=== PATIENT | female | born 1985 | race Two or more races ===

== ENCOUNTER 2016-10-19 11:15 | Emergency (ER) | payer OTHER ==
[2016-10-19 11:21] VITALS: BMI 30.1
--- NOTE | 2016-10-19 11:31 | PDOC ---
History of Present Illness - General Chief Complaint: Pain Stated Complaint: PELVIC PAIN, 4 WKS Time Seen by Provider: 10/19/16 11:26 History Source: Patient - History of Present Illness Timing/Duration: reports: intermittent Quality: reports: cramping Abdominal Pain Onset Location: reports: suprapubic Past History - Past Medical History Allergies/Adverse Reactions: Allergies Allergy/AdvReac Type Severity Reaction Status Date / Time No Known Allergies Allergy Verified 10/19/16 11:18 Home Medications: Ambulatory Orders Levothyroxine [Synthroid -] 25 mcg PO DAILY #1 tablet 08/14/12 Asthma: No Cancer: No Cardiac Disorders: No Diabetes: No HTN: No Seizures: No Thyroid Disease: Yes - Psycho/Social/Smoking Cessation Hx Anxiety: No Suicidal Ideation: No Smoking Status: No Smoking History: Never smoked Have you smoked in the past 12 months: No Number of Cigarettes Smoked Daily: 0 Information on smoking cessation initiated: No Hx Alcohol Use: No Drug/Substance Use Hx: No Substance Use Type: None Hx Substance Use Treatment: No Review of Systems - Review of Systems Constitutional: No: Chills, Fever ABD/GI: No: Nausea, Vomiting : No: Dysuria, Flank Pain, Hematuria *Physical Exam - Vital Signs Last Vital Signs Temp Pulse Resp BP Pulse Ox 97.9 F 82 18 149/69 100 10/19/16 11:18 10/19/16 11:18 10/19/16 11:18 10/19/16 11:18 10/19/16 11:18 - Physical Exam General Appearance: Yes: Appropriately Dressed. No: Apparent Distress HEENT: positive: Normal Voice Neck: positive: Supple Respiratory/Chest: negative: Respiratory Distress Female Pelvic Exam: positive: normal adnexa, discharge (minimal amount of milky white discharge). negative: cervical os closed, CMT Gastrointestinal/Abdominal: positive: Tender (to mid and L suprapubic), Soft Musculoskeletal: negative: CVA Tenderness Extremity: positive: Normal Inspection Integumentary: positive: Dry, Warm Neurologic: positive: Fully Oriented, Alert, Normal Mood/Affect Medical Decision Making - Medical Decision Making 10/19/16 11:30 30-year-old female, (s/p ectopic-med tx, 2 spon ABs) , approximately 5 weeks by dates, no or ultrasound as of yet, here with pelvic cramping since last night, mostly on the L side. No vag bleed, dysuria, abnl discharge, nausea, vomiting, fever or chills. see exam 1st trimester w/ pain Stable in ED w/ ttp to mid and L suprapubic, NT over mcburneys, pelvis unremarkable -pain control -ua -US 10/19/16 11:50 10/19/16 11:53 10/19/16 15:19 Ges sac w/ yolk sac on US. M/l early preg. No adnexal masses or FF. Pt to f/u with CERTIFIED MEDICAL RECORDS CODER for serial beta. Reasons to return to ED d/w pt 10/19/16 15:22 10/19/16 15:22 10/19/16 15:22 *DC/Admit/Observation/Transfer Diagnosis at time of Disposition: Early stage of - Discharge Dispostion Disposition: HOME Condition at time of disposition: Good - Patient Instructions Additional Instructions: Your beta is 15,029 today. Your US is consistent with an early . Please follow up with your CERTIFIED MEDICAL RECORDS CODER in 2 days or at least on Sunday for repeat beta Return to ED for worsening of symptoms Take tylenol only for pain
--- NOTE | 2016-10-19 11:41 | PDOC ---
*Physical Exam - Vital Signs Last Vital Signs Temp Pulse Resp BP Pulse Ox 97.9 F 82 18 149/69 100 10/19/16 11:18 10/19/16 11:18 10/19/16 11:18 10/19/16 11:18 10/19/16 11:18 - Physical Exam Comments: 10/19/16 11:40 MIDLEVEL NOTE Pt seen by Midlevel Provider under my direct supervision. Pt interviewed and examined. Ancillary studies reviewed. I agree with plan as outlined by Midlevel Provider. 10/19/16 12:18 O+ from prior blood work 10/19/16 15:49 Laboratory Results - last 24 hr 10/19/16 10/19/16 11:38 11:55 Beta HCG, Quant 54223.8 Urine Color Straw Urine Appearance Clear Urine pH 6.0 Ur Specific [place] 1.005 Urine Protein Negative Urine Glucose (UA) Negative Urine Ketones Negative Urine Blood Negative Urine Nitrite Negative Urine Bilirubin Negative Urine Urobilinogen Negative Ur Leukocyte Esterase Trace H D Urine RBC 1 Urine WBC None Ur Epithelial Cells Rare Urine HCG, Qual Positive ultrasound There is an intrauterine fluid collection that is consistent with a gestational sac This corresponds to a gestational age of 5 weeks and 3 days A yolk sac is noted, however no pole is identified The ovaries are normal in size and texture with a complex right ovarian cyst, most likely hemorrhagic in nature Final impression Suspected early IUP *DC/Admit/Observation/Transfer Diagnosis at time of Disposition: Early stage of - Discharge Dispostion Disposition: HOME Condition at time of disposition: Good - Referrals Referrals: Jennifer Gregorio [Primary Care Provider] - - Patient Instructions Additional Instructions: Your beta is 15,029 today. Your US is consistent with an early . Please follow up with your ROCKET ENGINE MECHANIC in 2 days or at least on Sunday for repeat beta Return to ED for worsening of symptoms Take tylenol only for pain
[2016-10-19 11:50] LABS: URINE APPEARANCE CLEAR; URINE BILIRUBIN NEGATIVE (NEGATIVE); URINE BLOOD NEGATIVE (NEGATIVE); URINE COLOR STRAW; URINE GLUCOSE (UA) NEGATIVE (NEGATIVE); URINE KETONE NEGATIVE (NEGATIVE); URINE NITRITE NEGATIVE (NEGATIVE); URINE PROTEIN NEGATIVE (NEGATIVE); URINE UROBILINOGEN NEGATIVE E.U./dl (0.2-1.0)
[2016-10-19 11:51] LABS: URINE LEUK ESTERASE TRACE (NEGATIVE)
[2016-10-19] MEDS ORDERED: ACETAMINOPHEN 325 MG TABLET (FP) PO ONE (11:53)
[2016-10-19] MEDS ORDERED: ACETAMINOPHEN 325 MG TABLET (FP) ONE (11:53)
[2016-10-19 12:39] LABS: URINE RBC 1 /hpf (0-3)
[2016-10-19 15:30] VITALS: BP 117/61; PULSE 79; TEMP 97.8
== END 2016-10-19 15:26 | disposition home or self-care (01) ==
LOC: JER 11:15
DX: O26.891 Other specified pregnancy related conditions, first trimester (principal); R10.30 Lower abdominal pain, unspecified; Z3A.01 Less than 8 weeks gestation of pregnancy
CPT/HCPCS: 36415; 76801-TC; 81003; 81015; 84702; 84703; 99282-25

== ENCOUNTER 2016-11-27 09:08 | Emergency (ER) | payer OTHER ==
[2016-11-27 09:15] VITALS: TEMP 98.1; BMI 30.4
--- NOTE | 2016-11-27 09:22 | PDOC ---
History of Present Illness - General History Source: Patient Exam Limitations: No Limitations - History of Present Illness Initial Comments: 11/27/16 10:14 The patient is a 31 year old 11-week female with a significant past medical history of hypothyroidism, who presents to the ED with worsening cramps since today. Patient states she has been having cramps ever since she was , but it is increasingly severe today. She reports subjective fevers as well. She denies chills, nausea, vomiting, diarrhea. She denies dysuria, frequency, vaginal discharge. 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 <Amado Corrales - Last Filed: 11/27/16 10:14> <Juana Rodriguez - Last Filed: 11/27/16 12:20> - General Chief Complaint: Pain Stated Complaint: ABD PAIN, 11 WKS Time Seen by Provider: 11/27/16 09:22 Past History <Amado Corrales - Last Filed: 11/27/16 10:14> - Past Medical History Asthma: No Cancer: No Cardiac Disorders: No Diabetes: No HTN: No Seizures: No Thyroid Disease: Yes - Reproductive History (#): 5 Para: 1 Ectopic : Yes (1) Spontaneous : 2 - Psycho/Social/Smoking Cessation Hx Anxiety: No Suicidal Ideation: No Smoking Status: No Smoking History: Never smoked Have you smoked in the past 12 months: No Number of Cigarettes Smoked Daily: 0 Information on smoking cessation initiated: No Hx Alcohol Use: No Drug/Substance Use Hx: No Substance Use Type: None Hx Substance Use Treatment: No <Juana Rodriguez - Last Filed: 11/27/16 12:20> - Past Medical History Allergies/Adverse Reactions: Allergies Allergy/AdvReac Type Severity Reaction Status Date / Time No Known Allergies Allergy Verified 11/27/16 09:11 Home Medications: Ambulatory Orders Levothyroxine [Synthroid -] 25 mcg PO DAILY #1 tablet 08/14/12 Review of Systems - Review of Systems Able to Perform ROS?: Yes Comments:: 11/27/16 10:15 GENERAL/CONSTITUTIONAL: No fever or chills. No weakness. HEAD, EYES, EARS, NOSE AND THROAT: No change in vision. No ear pain or discharge. No sore throat. CARDIOVASCULAR: No chest pain or shortness of breath. RESPIRATORY: No cough, wheezing, or hemoptysis. GASTROINTESTINAL: No nausea, vomiting, diarrhea or constipation. GENITOURINARY: No dysuria, frequency, or change in urination. MUSCULOSKELETAL: No joint or muscle swelling or pain. No neck or back pain. ABDOMINAL: increasing abdominal cramping. SKIN: No rash NEUROLOGIC: No headache, vertigo, loss of consciousness, or change in strength/ sensation. ENDOCRINE: No increased thirst. No abnormal weight change. HEMATOLOGIC/LYMPHATIC: No anemia, easy bleeding, or history of blood clots. ALLERGIC/IMMUNOLOGIC: No hives or skin allergy. <Amado Corrales - Last Filed: 11/27/16 10:14> *Physical Exam - Vital Signs Last Vital Signs Temp Pulse Resp BP Pulse Ox 98.1 F 82 18 138/78 100 11/27/16 09:12 11/27/16 09:12 11/27/16 09:12 11/27/16 09:12 11/27/16 09:12 - Physical Exam Comments: 11/27/16 10:18 GENERAL: Awake, alert, and fully oriented, in no acute distress HEAD: No signs of trauma EYES: PERRLA, EOMI, sclera anicteric, conjunctiva clear ENT: Auricles normal inspection, hearing grossly normal, nares patent, oropharynx clear without exudates. Moist mucosa NECK: Normal ROM, supple, no lymphadenopathy, JVD, or masses LUNGS: Breath sounds equal, clear to auscultation bilaterally. No wheezes, and no crackles HEART: Regular rate and rhythm, normal S1 and S2, no murmurs, rubs or gallops ABDOMEN: Soft, nontender, normoactive bowel sounds. No guarding, no rebound. No masses EXTREMITIES: Normal range of motion, no edema. No clubbing or cyanosis. No cords, erythema, or tenderness NEUROLOGICAL: Cranial nerves II through XII grossly intact. Normal speech, normal gait SKIN: Warm, Dry, normal turgor, no rashes or lesions noted. PELVIC EXAMINATION: Pelvis is mildly tender. External genitalia is normal without lesions. Vaginal vault is clear without blood or discharge. Cervix is long and closed with no cervical motion tenderness. <Amado Corrales - Last Filed: 11/27/16 10:14> - Vital Signs Last Vital Signs Temp Pulse Resp BP Pulse Ox 98.1 F 82 18 138/78 100 11/27/16 09:12 11/27/16 09:12 11/27/16 09:12 11/27/16 09:12 11/27/16 09:12 <Juana Rodriguez - Last Filed: 11/27/16 12:20> ED Treatment Course - LABORATORY CBC & Chemistry Diagram: 11/27/16 10:00 11/27/16 10:00 <Amado Corrales - Last Filed: 11/27/16 10:14> - LABORATORY CBC & Chemistry Diagram: 11/27/16 10:00 11/27/16 10:00 <Juana Rodriguez - Last Filed: 11/27/16 12:20> Medical Decision Making - Medical Decision Making 11/27/16 10:55 Patient presents to the ED complaining of a "pulling sensation" in her abdomen. Patient is 11 weeks and has been having cramping throughout her . Seen in the ED 10/09, [place] [address] and a yolk sac in the uterus, suspicion for non viable . Denies vaginal bleeding. Pelvic exam is unremarkable. Early IUP vs non viable . Will check labs including serum BHCG and official ultrasound. 11/27/16 12:19 Live IUP on ultrasound. Patient is resting comfortably. UA shows no evidence of infection. Will discharge home with follow up with primary OB. <Juana Rodriguez - Last Filed: 11/27/16 12:20> *DC/Admit/Observation/Transfer - Attestations Scribe Attestion: 11/27/16 10:19 Documentation prepared by Amado Corrales, acting as medical claims analyst for Juana Rodriguez MD, . <Amado Corrales - Last Filed: 11/27/16 10:14> - Discharge Dispostion Admit: No <Juana Rodriguez - Last Filed: 11/27/16 12:20> Diagnosis at time of Disposition: Early stage of - Discharge Dispostion Disposition: HOME Condition at time of disposition: Good - Referrals Referrals: Jennifer Gregorio [Primary Care Provider] -
[2016-11-27 10:15] LABS: BASOPHIL 0.6 % (0-2.0); EOSINOPHIL 1.8 % (0-4.5); MCH 22.8 pg (25.7-33.7); MCHC 32.4 g/dl (32.0-36.0); MEAN CELL VOLUME 70.5 fl (80-96); PLATELET COUNT 267 K/MM3 (134-434); RDW 20.3 % (11.6-15.6); WHITE BLOOD COUNT 6.3 K/mm3 (4.0-10.0)
[2016-11-27 10:17] LABS: URINE APPEARANCE CLEAR; URINE BILIRUBIN NEGATIVE (NEGATIVE); URINE BLOOD NEGATIVE (NEGATIVE); URINE COLOR YELLOW; URINE GLUCOSE (UA) NEGATIVE (NEGATIVE); URINE KETONE NEGATIVE (NEGATIVE); URINE NITRITE NEGATIVE (NEGATIVE); URINE PROTEIN NEGATIVE (NEGATIVE); URINE UROBILINOGEN NEGATIVE E.U./dl (0.2-1.0)
[2016-11-27 10:21] LABS: URINE LEUK ESTERASE TRACE (NEGATIVE)
[2016-11-27 10:22] LABS: URINE MUCUS FEW; URINE RBC 1 /hpf (0-3); URINE WBC 2 /hpf (3-5)
[2016-11-27 12:05] LABS: ALBUMIN 3.1 g/dl (3.4-5.0); ANION GAP 12 (8-16); CALCIUM 9.4 mg/dL (8.5-10.1); CO2 21 mmol/L (21-32); GLUCOSE,RANDOM 75 mg/dL (74-106)
[2016-11-27 12:08] LABS: BILIRUBIN,TOTAL 0.3 mg/dL (0.2-1.0); COCKROFT - GAULT 229.1855; CREATININE 0.5 mg/dL (0.55-1.02); SGOT/AST 10 U/L (15-37); SGPT/ALT 13 U/L (12-78); TOT PROT 7.5 g/dl (6.4-8.2)
[2016-11-27 12:21] LABS: ALK PHOS 83 U/L (45-117)
[2016-11-27 12:45] VITALS: BP 110/74; PULSE 80
[2016-11-27 14:32] LABS: HYPOCHROMIA 1+
[2016-11-27 14:33] LABS: ANISOCYTOSIS 1+; OVALOCYTES FEW
== END 2016-11-27 12:45 | disposition home or self-care (01) ==
LOC: JER 09:08
DX: O26.891 Other specified pregnancy related conditions, first trimester (principal); R10.30 Lower abdominal pain, unspecified; Z3A.11 11 weeks gestation of pregnancy
CPT/HCPCS: 36415; 76817-TC; 80053; 81003; 81015; 84702; 85025; 86850; 86900; 86901; 99283-25

== ENCOUNTER 2017-12-14 09:21 | Emergency (ER) | payer OTHER ==
[2017-12-14 09:29] VITALS: BP 129/73; PULSE 77; TEMP 98; BMI 32.3
[2017-12-14] MEDS ORDERED: ACETAMINOPHEN 325 MG TABLET (FP) PO ONE (09:49)
--- NOTE | 2017-12-14 09:52 | PDOC ---
History of Present Illness - General Chief Complaint: Pain Stated Complaint: PAIN&NUMBNESS TO LEGS Time Seen by Provider: 12/14/17 09:39 History Source: Patient Exam Limitations: No Limitations - History of Present Illness Initial Comments: 12/14/17 09:51 c/o 2 weeks bilateral leg pain, tingling to the [place] area and noticed swelling to legs in the morning . Pt denies any abd pain no back pain no shortness of breath. 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 no travel or recent surgery. pt took Aleve yesterday at 6pm. Past History - Past Medical History Allergies/Adverse Reactions: Allergies Allergy/AdvReac Type Severity Reaction Status Date / Time No Known Allergies Allergy Verified 12/14/17 09:25 Home Medications: Ambulatory Orders Levothyroxine [Synthroid -] 25 mcg PO DAILY #1 tablet 08/14/12 Asthma: No Cancer: No Cardiac Disorders: No COPD: No Diabetes: No HTN: No Seizures: No Thyroid Disease: Yes (HYPO) - Reproductive History (#): 5 Para: 1 Ectopic : Yes (1) Therapeutic (s) & number: No Spontaneous : 2 - Suicide/Smoking/Psychosocial Hx Smoking Status: No Smoking History: Never smoked Have you smoked in the past 12 months: No Number of Cigarettes Smoked Daily: 0 Hx Alcohol Use: No Drug/Substance Use Hx: No Substance Use Type: None Hx Substance Use Treatment: No *Physical Exam - Vital Signs Last Vital Signs Temp Pulse Resp BP Pulse Ox 98 F 77 19 129/73 95 12/14/17 09:25 12/14/17 09:25 12/14/17 09:25 12/14/17 09:25 12/14/17 09:25 - Physical Exam General Appearance: Yes: Nourished, Appropriately Dressed HEENT: positive: EOMI, IGNACIA, Normal ENT Inspection, TMs Normal, Pharynx Normal Neck: positive: Supple Respiratory/Chest: positive: Lungs Clear, Normal Breath Sounds Cardiovascular: positive: Regular Rhythm, Regular Rate. negative: Tachycardia Extremity: positive: Normal Capillary Refill, Normal Inspection, Normal Range of Motion, Tender (anterior shins bilateraly, no redness, mild swelling noted to feet ). negative: Calf Tenderness, Erythema, Inflammation Integumentary: positive: Normal Color, Dry, Warm Neurologic: positive: Fully Oriented, Alert, Normal Mood/Affect, Normal Response , Motor Strength 5/5 ED Treatment Course - RADIOLOGY Radiology Studies Ordered: Category Date Time Status DUPLEX VASCUL US-2LEGS [US] Stat Ultrasound 12/14/17 09:48 Ordered Medical Decision Making - Medical Decision Making LMP 11/10/17 denies c/o leg pain leg swelling 12/14/17 12:50 positive will get transvaginal US pt has no vag bleeding or cramping or pain 12/14/17 13:02 12/14/17 13:52 wet read of transvaginal: small IUP noted no yolk sac no evidence of ectopic follow up in 2 weeks 12/14/17 17:51 official US reviewed. pt is aware of the results and understands to follow up with slasher runner *DC/Admit/Observation/Transfer Diagnosis at time of Disposition: Early stage of Leg pain Qualifiers: Laterality: bilateral Qualified Code(s): M79.604 - Pain in right leg - Discharge Dispostion Disposition: HOME Condition at time of disposition: Good - Referrals Referrals: Parish Durham MD [Staff Physician] - - Patient Instructions Additional Instructions: please follow with your primary care on Sunday and your manager presentation next week take tylenol 650mg every 4-6hrs for pain as needed elevate your legs apply warm compresses or warm baths can help with swelling as well please return to ER for any worsening symptoms - Post Discharge Activity Forms/Work/School Notes: Back to Work
[2017-12-14 10:23] LABS: URINE APPEARANCE CLEAR; URINE BILIRUBIN NEGATIVE (<2.0 mg/dL); URINE COLOR LTYELLOW; URINE GLUCOSE (UA) NEGATIVE (NEGATIVE); URINE KETONE NEGATIVE (NEGATIVE); URINE LEUK ESTERASE NEGATIVE (NEGATIVE); URINE NITRITE NEGATIVE (NEGATIVE); URINE PROTEIN NEGATIVE (NEGATIVE); URINE UROBILINOGEN NEGATIVE mg/dL (0.2-1.0)
[2017-12-14] MEDS ORDERED: ACETAMINOPHEN 325 MG TABLET (FP) ONE (10:28)
== END 2017-12-14 14:05 | disposition home or self-care (01) ==
LOC: JERFT 09:21
DX: O26.891 Other specified pregnancy related conditions, first trimester (principal); O12.01 Gestational edema, first trimester; M79.604 Pain in right leg; Z3A.01 Less than 8 weeks gestation of pregnancy
CPT/HCPCS: 76817-TC; 81003; 84703; 93970-TC; 99281-25

== ENCOUNTER 2017-12-19 08:08 | Emergency (ER) | payer OTHER ==
[2017-12-19 08:15] VITALS: BMI 32.3
[2017-12-19 08:58] LABS: BASO % 0.9 % (0-2.0); EOS % 1.5 % (0-4.5); HEMATOCRIT 41.7 % (32.4-45.2); HEMOGLOBIN 13.8 GM/dL (10.7-15.3); LYMPH % 23.6 % (8-40); MCH 28.2 pg (25.7-33.7); MCHC 33.2 g/dl (32.0-36.0); MONO % 6.3 % (3.8-10.2); NEUT % 67.7 % (42.8-82.8); PLATELET COUNT 213 K/MM3 (134-434); RBC 4.91 M/mm3 (3.60-5.2); RDW 13.5 % (11.6-15.6); WHITE BLOOD COUNT 5.1 K/mm3 (4.0-10.0)
[2017-12-19 09:06] LABS: URINE APPEARANCE SLCLOUDY; URINE BILIRUBIN NEGATIVE (<2.0 mg/dL); URINE COLOR YELLOW; URINE GLUCOSE (UA) NEGATIVE (NEGATIVE); URINE KETONE NEGATIVE (NEGATIVE); URINE LEUK ESTERASE TRACE (NEGATIVE); URINE NITRITE NEGATIVE (NEGATIVE); URINE PROTEIN 1+ (NEGATIVE); URINE UROBILINOGEN NEGATIVE mg/dL (0.2-1.0)
[2017-12-19 09:18] LABS: EPI CELLS FEW /HPF (FEW); URINE MUCUS RARE
--- NOTE | 2017-12-19 09:34 | PDOC ---
History of Present Illness - General Chief Complaint: Vaginal Bleeding Stated Complaint: Vaginal Bleeding/MISCARRIAGE Time Seen by Provider: 12/19/17 08:31 History Source: Patient Exam Limitations: No Limitations - History of Present Illness Initial Comments: CHIEF COMPLAINT: 32 y/o afebrile, [id number], approximately 5 week female c/o abdominal cramping and vaginal bleeding since last night. HISTORY OF PRESENT ILLNESS: The patient was seen here last week when was confirmed. The patient states large clots were passed this morning. She denies f/c, n/v/d, CP, SOB, dysuria, hematuria. CRUSHING MACHINE OPERATOR is Dr. Trejo Past History - Past Medical History Allergies/Adverse Reactions: Allergies Allergy/AdvReac Type Severity Reaction Status Date / Time No Known Allergies Allergy Verified 12/19/17 08:12 Home Medications: Ambulatory Orders Levothyroxine [Synthroid -] 25 mcg PO DAILY #1 tablet 08/14/12 Nitrofurantoin Monohyd/M-Cryst [Macrobid -] 100 mg PO BID #14 capsule 12/19/17 Asthma: No Cancer: No Cardiac Disorders: No COPD: No Diabetes: No HTN: No Seizures: No Thyroid Disease: Yes (HYPO) - Reproductive History Is Patient Now?: Yes (#): 5 Para: 1 Ectopic : Yes (1) Therapeutic (s) & number: No Spontaneous : 2 - Immunization History Immunization Up to Date: Yes - Suicide/Smoking/Psychosocial Hx Smoking Status: No Smoking History: Never smoked Have you smoked in the past 12 months: No Number of Cigarettes Smoked Daily: 0 Information on smoking cessation initiated: No Hx Alcohol Use: No Drug/Substance Use Hx: No Substance Use Type: None Hx Substance Use Treatment: No Review of Systems - Review of Systems Able to Perform ROS?: Yes Is the patient limited [place] proficient: Yes Constitutional: No: Symptoms Reported HEENTM: No: Symptoms Reported Respiratory: No: Symptoms reported Cardiac (ROS): No: Symptoms Reported ABD/GI: Yes: Abdominal cramping, Other (+vaginal bleeding). No: Constipated, Diarrhea, Nausea, Vomiting : No: Symptoms Reported Musculoskeletal: No: Symptoms Reported *Physical Exam - Vital Signs Last Vital Signs Temp Pulse Resp BP Pulse Ox 98.0 F 72 17 135/75 97 12/19/17 08:12 12/19/17 08:12 12/19/17 08:12 12/19/17 08:12 12/19/17 08:12 - Physical Exam Comments: The patient is very well appearing, ambulatory, in NAD or obvious discomfort. General Appearance: Yes: Nourished, Appropriately Dressed. No: Apparent Distress HEENT: positive: EOMI, IGNACIA Respiratory/Chest: positive: Lungs Clear Cardiovascular: positive: Regular Rhythm, Regular Rate Female Pelvic Exam: positive: other (DEFERRED) Gastrointestinal/Abdominal: positive: Soft. negative: Tender Neurologic: positive: heater tender II-XII NML intact, Fully Oriented, Alert ED Treatment Course - LABORATORY CBC & Chemistry Diagram: 12/19/17 08:52 12/19/17 08:52 - ADDITIONAL ORDERS Additional order review: Laboratory Results 12/19/17 08:42 Urine Color Yellow Urine Appearance Slcloudy Urine pH 5.0 Ur Specific [place] 1.019 Urine Protein 1+ H Urine Glucose (UA) Negative Urine Ketones Negative Urine Blood 3+ H Urine Nitrite Negative Urine Bilirubin Negative Urine Urobilinogen Negative Ur Leukocyte Esterase Trace Urine WBC (Auto) 279 Urine RBC (Auto) 704 Ur Epithelial Cells Few Urine Mucus Rare 12/19/17 08:52 RBC 4.91 MCV 85.0 MCHC 33.2 RDW 13.5 D MPV 8.0 Neutrophils % 67.7 Lymphocytes % 23.6 Monocytes % 6.3 Eosinophils % 1.5 Basophils % 0.9 - RADIOLOGY Radiology Studies Ordered: Category Date Time Status TRANSVAGINAL US PREG [US] Stat Ultrasound 12/19/17 08:32 Ordered Medical Decision Making - Medical Decision Making A/P: 32 y/o afebrile female, [id number], approximately 5 weeks female c/ o vaginal bleeding and lower abdominal cramping since last night. Plan is as follows: 1. labs 2. UA 3. Transvaginal Ultrasound Beta hCG - 551. Low for 5-6 weeks but no comparison. UA with WBCs - will treat with macrobid Transvaginal Ultrasound IMPRESSION: Single intrauterine gestational sac like structure measuring 4.2mm which is below the range for early measurements, less than 6 weeks. No pole or yolk sac are identified. Correlation with serial quantitiative serum beta hCG and close follow up ultrasound is recommended. Large likely complex cyst measuring 1.9cm in cervix. Right ovary simple cyst/ corpus luteum cyst measuring 1.5 x 1.2cm. The patient was given her results. Instructed her to f/u with Dr. Trejo within 2 weeks for follow up ultrasound and repeat beta hCG. Pt instructed to take abx as prescribed. The patient verbalizes understanding of all instructions, has no further questions and is awaiting discharge. *DC/Admit/Observation/Transfer Diagnosis at time of Disposition: Threatened , UTI (lower urinary tract infection) - Discharge Dispostion Disposition: HOME Condition at time of disposition: Good - Referrals Referrals: Alvin Carvalho MD [Staff Physician] - Call tomorrow - Patient Instructions Printed Discharge Instructions: DI for Urinary Tract Infection (UTI), DI for Threatened Additional Instructions: Discharge Instructions: -Your beta hCG level today is 551 -Your ultrasound showed a small gestational sac with no pole or yolk sac. -You could be having a miscarriage, but only time will tell -You also have a UTI, and a prescription for antibiotics has been sent to your pharmacy -Please call Dr. Carvalho tomorrow and schedule a follow up appointment for 1 week from now to have a repeat beta hCG and possibly a repeat ultrasound - Post Discharge Activity Forms/Work/School Notes: Back to Work
[2017-12-19 10:08] LABS: ALBUMIN 3.6 g/dl (3.4-5.0); ANION GAP 7 (8-16); BLOOD UREA NITROGEN 10 mg/dL (7-18); CALCIUM 8.9 mg/dL (8.5-10.1); CHLORIDE 105 mmol/L (98-107); CO2 25 mmol/L (21-32); CREATININE 0.6 mg/dL (0.55-1.02); GLUCOSE,RANDOM 82 mg/dL (74-106); SGOT/AST 15 U/L (15-37); SGPT/ALT 20 U/L (12-78); SODIUM 137 mmol/L (136-145)
[2017-12-19 10:12] LABS: ALK PHOS 129 U/L (45-117); BILIRUBIN,TOTAL 0.3 mg/dL (0.2-1.0); TOT PROT 7.7 g/dl (6.4-8.2)
[2017-12-19] MEDS ORDERED: ACETAMINOPHEN 500 MG TABLET (FP) PO ONE (10:41)
[2017-12-19] MEDS ORDERED: ACETAMINOPHEN 325 MG TABLET (FP) ONE (10:42)
[2017-12-19 11:47] VITALS: BP 138/78; PULSE 89; TEMP 98.1
== END 2017-12-19 11:50 | disposition home or self-care (01) ==
LOC: JER 08:08
DX: O26.891 Other specified pregnancy related conditions, first trimester (principal); O20.0 Threatened abortion; O23.31 Infections of other parts of urinary tract in pregnancy, first trimester; Z3A.01 Less than 8 weeks gestation of pregnancy
CPT/HCPCS: 36415; 76817-TC; 80053; 81003; 81015; 84702; 85025; 86850; 86900; 86901; 87086; 99283-25

== ENCOUNTER 2021-11-02 09:58 | Emergency (ER) | payer OTHER ==
[2021-11-02 10:11] VITALS: BP 134/83; PULSE 104; TEMP 98.6; BMI 30.4
[2021-11-02] MEDS ORDERED: SODIUM CHLORIDE 0.9% 500 ML INFUS.BAG IV ONE (10:38)
[2021-11-02] MEDS ORDERED: METOCLOPRAMIDE HCL INJECTION 10 MG/2 ML VIAL IVPUSH ONE (10:38)
[2021-11-02] MEDS ORDERED: METOCLOPRAMIDE HCL INJECTION 10 MG/2 ML VIAL ONE (10:53)
[2021-11-02 11:28] LABS: BASO % 1.3 % (0-2.0); EOS % 0.2 % (0-4.5); HEMATOCRIT 30.4 % (32.4-45.2); HEMOGLOBIN 9.5 GM/dL (10.7-15.3); LYMPH % 30.3 % (8-40); MCH 20.5 pg (25.7-33.7); MCHC 31.2 g/dl (32.0-36.0); MEAN CELL VOLUME 65.9 fl (80-96); MEAN PLT VOLUME 7.8 fl (7.5-11.1); MONO % 19.2 % (3.8-10.2); PLATELET COUNT 307 10^3/uL (134-434); RBC 4.62 M/mm3 (3.60-5.2); WHITE BLOOD COUNT 3.4 K/mm3 (4.0-10.0)
[2021-11-02 11:36] LABS: CALCIUM 8.6 mg/dL (8.5-10.1)
[2021-11-02 11:37] LABS: ALBUMIN 3.3 g/dl (3.4-5.0); BLOOD UREA NITROGEN 7.9 mg/dL (7-18); MAGNESIUM 2.3 mg/dL (1.8-2.4)
[2021-11-02 11:40] LABS: CREATININE 0.8 mg/dL (0.55-1.3)
[2021-11-02 11:42] LABS: BILIRUBIN,TOTAL 0.3 mg/dL (0.2-1); TOT PROT 7.6 g/dl (6.4-8.2)
[2021-11-02 12:12] LABS: ANISOCYTOSIS 3+; MACROCYTOSIS 0; OVALOCYTE 2+
[2021-11-02] MEDS ORDERED: ACETAMINOPHEN/CAFFEINE/BUTALBITAL 1 TAB PO ONE (12:35)
[2021-11-02] MEDS ORDERED: KETOROLAC TROMETHAMINE 30 MG/1 ML VIAL IVPUSH ONE (12:35)
[2021-11-02] MEDS ORDERED: ACETAMINOPHEN/CAFFEINE/BUTALBITAL 1 TAB ONE (12:43)
[2021-11-02] MEDS ORDERED: KETOROLAC TROMETHAMINE 30 MG/1 ML VIAL ONE (12:44)
== END 2021-11-02 13:28 | disposition home or self-care (01) ==
LOC: JER 09:58
PROC: 3E0333Z Introduction of Anti-inflammatory into Peripheral Vein, Percutaneous Approach (ICD-10-PCS; principal; 2021-11-02)
PROC: 3E033GC Introduction of Other Therapeutic Substance into Peripheral Vein, Percutaneous Approach (ICD-10-PCS; 2021-11-02)
DX: G44.031 Episodic paroxysmal hemicrania, intractable (principal)
CPT/HCPCS: 36415; 70450-TC; 80053; 83735; 84443; 85025; 99284-25